=== PATIENT | male | born 1960 | race African-American/Black ===

== ENCOUNTER 2018-03-21 16:56 | Emergency (ER) | payer SELFPAY ==
[~2018-03-21] VITALS: Ht 188 cm; Wt 93.7 kg
[2018-03-21 17:52] LABS: HEMATOCRIT 45.2 % (38.0-50.0); HEMOGLOBIN 15.7 G/DL (12.5-16.6); MCH 28.3 PG (29.0-34.0); MCHC 34.7 G/DL (30.0-36.0); MCV 81.4 FL (86-99); PLATELET COUNT 315 K/uL (156-360); RBC DIS.WIDTH-CV 13.3 % (11.8-14.6); RBC DIS.WIDTH-SD 39.6 % (39-53); RED BLOOD COUNT 5.55 M/uL (4.00-5.50); WHITE BLOOD COUNT 9.9 K/uL (4.1-10.2)
[2018-03-21 18:02] LABS: ALBUMIN 4.4 g/dL (3.2-4.8)
[2018-03-21 18:03] LABS: CHLORIDE 96 mEq/L (99-109); POTASSIUM 3.8 mEq/L (3.7-5.4); SODIUM 132 mEq/L (136-147)
[2018-03-21 18:05] LABS: GLUCOSE 138 mg/dL (70-99); TOTAL PROTEIN 7.8 g/dL (6.4-8.3)
[2018-03-21 18:07] LABS: TOTAL BILIRUBIN 0.5 mg/dL (0.0-1.0)
[2018-03-21 18:08] LABS: ALKALINE PHOSPHATASE 107 IU/L (3-129)
[2018-03-21 18:09] LABS: CREATININE 0.9 mg/dL (0.6-1.3); GFR ESTIMATE (CALCULATED) > 59 mL/min/ (58.99-99999); TROP-I INTERPRETATION NEGATIVE; TROPONIN-I < 0.01 ng/mL (0.0-0.30)
[2018-03-21 18:10] LABS: APPEARANCE CLEAR ((CLEAR)); BILIRUBIN NEGATIVE; BLOOD NEGATIVE; COLOR YELLOW ((YELLOW)); GLUCOSE (STRIP) 50; KETONES NEGATIVE; LEUKOCYTES NEGATIVE; NITRITE NEGATIVE; PROTEIN (STRIP) NEGATIVE; SPECIFIC GRAVITY 1.025 (1.000-1.030); UCUL ADDED? NO
[2018-03-21 18:10] LABS: AST (GOT) 28 IU/L (2-34); UREA NITROGEN (BUN) 18 mg/dL (9-23)
[2018-03-21 18:12] LABS: ALT (GPT) 31 IU/L (3-49); LIPASE 107 U/L (1.0-51.0)
[2018-03-21 20:56] LABS: TROP-I INTERPRETATION NEGATIVE; TROPONIN-I < 0.01 ng/mL (0.0-0.30)
[2018-03-21] MEDS ORDERED: ZOFRAN ODT4 MG PO (21:02)
[2018-03-21 21:09] VITALS: BP 171/83
== END 2018-03-21 21:10 | disposition home or self-care (01) ==
LOC: EME 16:56
PROVIDERS: Physician Assistant Medical
DX: R11.2 Nausea with vomiting, unspecified (principal); R19.7 Diarrhea, unspecified; R10.13 Epigastric pain; E11.9 Type 2 diabetes mellitus without complications; F17.200 Nicotine dependence, unspecified, uncomplicated
CPT/HCPCS: 80053; 81003; 83690; 84484; 85027; 87177; 87493; 87506; 93005; 99281; 99284; J2405; J7030